=== PATIENT | male | born 1985 | race Caucasian/White ===

== ENCOUNTER → 2017-03-06 | Day surgery (SDC) | payer BC, OTHER ==
[~2017-03-06] MED LIST: Bupivacaine 0.25% 10 ML SDV INJECT ONE; Bupivacaine 0.25% 10 ML SDV ONE; Lactated Ringers 1,000 ML IV SCH; Lidocaine 2% 20 ML MDV INJECT ONE; Ondansetron 4 MG/2 ML SDV IVPUSH PRN; ceFAZolin 1 GM Vial IVPUSH ONE; ceFAZolin 1 GM Vial ONE
[2017-03-06] MEDS: Acetaminophen/HYDROcodone 325-5 MG Tab PO PRN ×2 (18:48→22:48)
[2017-03-07] MEDS: Acetaminophen/HYDROcodone 325-5 MG Tab PO PRN ×2 (04:23→09:23)
--- NOTE | 2017-03-07 06:49 | OR ---
DATE OF OPERATION: 03/06/2017 PREOPERATIVE DIAGNOSIS: RIGHT INGUINAL HERNIA. POSTOPERATIVE DIAGNOSIS: RIGHT INGUINAL HERNIA. SURGEON: Cassius San MD PROCEDURE: REPAIR OF RIGHT INGUINAL HERNIA, RAYMOND'S REPAIR. ANESTHESIA: General. DESCRIPTION OF PROCEDURE: After the patient was anesthetized satisfactorily, the patient's right groin was prepped with iodoform. The patient was given sterile drapes. A skin incision was made in the right groin extending from the pubic tubercle in the direction of the anterior superior iliac spine. It was carried down through skin, subcutaneous tissue, all the bleeding points were cauterized. The external oblique aponeurosis was opened and its edges were lifted up with hemostats, then with Metzenbaum scissors. Incision was extended to divide the external inguinal ring. A Brenda drain was passed around the cord and surrounding structures. There was a large hernia sac that looks like with infarcted fatty tissue in it. The sac was opened, the infarcted tissue was removed along with the hernia sac. The neck of the sac was ligated with the 2-0 Vicryl, pursestring suture, and the sac was divided and taken as specimen. There were 2 large lipomas of the cord too, which were also both removed and their neck were also ligated with 2-0 Vicryl sutures. Then, a relaxing incision was made in the conjoint tendon using 0 Ethibond sutures, sutures were placed between the pubic tubercle and the conjoint tendon and then between the Jd's ligament and the conjoined tendon, then between the shelving edge of the inguinal ligament and the conjoined tendon. The sutures were ligated satisfactorily. Then, the external oblique aponeurosis was also closed with 0 Ethibond interrupted sutures. Subcutaneous tissue was closed with 3-0 Vicryl running suture. Skin was closed with ivanna. The patient was given sterile dressing. He tolerated the procedure well and left the operating room in satisfactory condition. DEENA/HEMANTH /[id number]
== END ==
LOC: CC.SDS 12:19
PROVIDERS: ATTEND Surgery
DX: K40.90 Unilateral inguinal hernia, without obstruction or gangrene, not specified as recurrent (principal); I10 Essential (primary) hypertension; G47.30 Sleep apnea, unspecified; Z79.899 Other long term (current) drug therapy; F17.210 Nicotine dependence, cigarettes, uncomplicated
CPT/HCPCS: 49505; A9270; J0690; J2405; J7120